=== PATIENT | female | born 1995 | race Caucasian/White ===

== ENCOUNTER 2018-01-27 14:24 | Emergency (ER) | payer OTHER, BC ==
[~2018-01-27] VITALS: Ht 167.6 cm; Wt 99.8 kg
[~2018-01-27 14:24] MED LIST: IBUPROFEN 200200 M1 PO; IBUPROFEN 800800 M1 PO; NORCO 5-325 TA1 EACH PO; NORFLEX100 MG PO
[2018-01-27] MEDS ORDERED: RIZATRIPTAN5 M1 PO (14:31)
[2018-01-27 14:54] LABS: ABSOLUTE BASOPHILS 0.1 thou/uL (0.0-0.2); ABSOLUTE EOSINOPHILS 0.1 thou/uL (0.0-0.7); ABSOLUTE LYMPHOCYTES 2.1 thou/uL (0.8-5.3); ABSOLUTE MONOCYTES 0.5 thou/uL (0.0-1.2); ABSOLUTE NEUTROPHILS 3.4 thou/uL (1.6-8.1); BASOPHILS 0.9 %; EOSINOPHILS 1.6 %; HEMATOCRIT 41.8 % (37.0-47.0); HEMOGLOBIN 14.1 gm/dL (12.0-15.0); LYMPHOCYTES 34.5 %; MCH 29.5 pg (26.0-34.0); MCHC 33.7 g/dL (28.0-37.0); MCV 87.7 fL (80.0-100.0); MPV 7.9 fl. (7.2-11.1); NUCLEATED RBCS 0 /100WBC; PLATELET COUNT* 304 thou/uL (150-400); RBC 4.77 mil/uL (4.20-5.00); RDW-CV 12.5 % (10.5-14.5); WBC 6.1 thou/uL (4.0-11.0)
[2018-01-27 14:56] LABS: CALCIUM 9.2 mg/dL (8.5-10.1); CREATININE 0.6 mg/dL (0.6-1.3); POTASSIUM 3.8 mmol/L (3.5-5.1)
[2018-01-27 15:01] LABS: ALBUMIN 3.6 g/dL (3.4-5.0); TOTAL BILIRUBIN 0.3 mg/dL (<0.1-1.0)
[2018-01-27 16:40] VITALS: BP 134/83
== END 2018-01-27 16:45 | disposition home or self-care (01) ==
LOC: M.ERS 14:24
PROVIDERS: Nurse Practitioner Family
DX: G43.909 Migraine, unspecified, not intractable, without status migrainosus (principal); I10 Essential (primary) hypertension; Z90.49 Acquired absence of other specified parts of digestive tract; Z98.890 Other specified postprocedural states

== ENCOUNTER 2018-11-25 19:23 | Emergency (ER) | payer OTHER, BC ==
[~2018-11-25] VITALS: Ht 167.6 cm; Wt 99.8 kg
[~2018-11-25 19:23] MED LIST changes: +RIZATRIPTAN5 M1 PO
[2018-11-25] MEDS ORDERED: PROZAC20 MG PO (19:35)
[2018-11-25] MEDS ORDERED: NUVARING VAGIN1 EACH VG (19:35)
[2018-11-25] MEDS ORDERED: BENADRYL25 MG PO (19:38)
[2018-11-25] MEDS ORDERED: COMPAZINE10 MG PO (19:38)
[2018-11-25 20:55] VITALS: BP 108/56
== END 2018-11-25 21:00 | disposition home or self-care (01) ==
LOC: M.ERS 19:23
DX: G43.909 Migraine, unspecified, not intractable, without status migrainosus (principal); Z98.890 Other specified postprocedural states; Z90.49 Acquired absence of other specified parts of digestive tract

== ENCOUNTER 2019-03-17 20:23 | Emergency (ER) | payer OTHER, BC ==
[~2019-03-17] VITALS: Ht 167.6 cm; Wt 113.4 kg
[~2019-03-17 20:23] MED LIST changes: +BENADRYL25 MG PO; +COMPAZINE10 MG PO; +NUVARING VAGIN1 EACH VG; +PROZAC20 MG PO
[2019-03-17] MEDS ORDERED: CYCLOBENZAPRINE5 MG PO (20:47)
[2019-03-17] MEDS ORDERED: PHENERGAN 25 MG25 M1 PO (20:47)
[2019-03-17 21:43] LABS: ABSOLUTE BASOPHILS 0.1 thou/uL (0.0-0.2); ABSOLUTE EOSINOPHILS 0.2 thou/uL (0.0-0.7); ABSOLUTE LYMPHOCYTES 2.4 thou/uL (0.8-5.3); ABSOLUTE MONOCYTES 0.8 thou/uL (0.0-1.2); ABSOLUTE NEUTROPHILS 6.1 thou/uL (1.6-8.1); BASOPHILS 0.6 %; EOSINOPHILS 1.9 %; HEMATOCRIT 36.2 % (37.0-47.0); HEMOGLOBIN 12.2 gm/dL (12.0-15.0); LYMPHOCYTES 24.9 %; MCH 29.7 pg (26.0-34.0); MCHC 33.7 g/dL (28.0-37.0); MCV 88.2 fL (80.0-100.0); MONOCYTES 8.7 %; MPV 7.6 fl. (7.2-11.1); NUCLEATED RBCS 0 /100WBC; PLATELET COUNT* 246 thou/uL (150-400); POLYS 63.9 %; RBC 4.11 mil/uL (4.20-5.00); RDW-CV 12.5 % (10.5-14.5); WBC 9.5 thou/uL (4.0-11.0)
[2019-03-17 21:48] LABS: URINE BILIRUBIN NEGATIVE (Negative); URINE BLOOD NEGATIVE (Negative); URINE CLARITY CLEAR; URINE COLOR YELLOW; URINE GLUCOSE-RANDOM NEGATIVE (Negative); URINE KETONES NEGATIVE (Negative); URINE LEUKOCYTES-REFLEX 1+ (Negative); URINE NITRITE-REFLEX NEGATIVE (Negative); URINE PROTEIN NEGATIVE (Negative); URINE SPECIFIC GRAVITY <= 1.005 (1.005-1.030); URINE UROBILINOGEN 0.2 E.U./dl (0.2-1.0)
[2019-03-17 21:54] LABS: CALCIUM 8.7 mg/dL (8.5-10.1); CREATININE 0.5 mg/dL (0.6-1.3); POTASSIUM 3.6 mmol/L (3.5-5.1)
[2019-03-17 21:59] LABS: ALBUMIN 3.1 g/dL (3.4-5.0); TOTAL BILIRUBIN 0.2 mg/dL (<0.1-1.0); TOTAL PROTEIN 6.7 g/dL (6.4-8.2)
[2019-03-17 22:11] LABS: CASTS None Seen /LPF (None Seen); CRYSTALS None Seen /LPF (None Seen); SQUAMOUS 0-3 Few /LPF (0-3); URINE RBC None Seen /HPF (0-2); URINE WBC-REFLEX 6-15 Few /HPF (0-5)
[2019-03-17] MEDS ORDERED: ONDANSETRON HCL4 M2 PO (23:11)
[2019-03-18 00:25] VITALS: BP 146/84
== END 2019-03-18 00:26 | disposition home or self-care (01) ==
LOC: M.ERS 20:23
PROVIDERS: Nurse Practitioner Family
DX: O26.892 Other specified pregnancy related conditions, second trimester (principal); R10.2 Pelvic and perineal pain; R11.0 Nausea; O13.2 Gestational [pregnancy-induced] hypertension without significant proteinuria, second trimester; O24.419 Gestational diabetes mellitus in pregnancy, unspecified control; O99.355 Diseases of the nervous system complicating the puerperium; G43.909 Migraine, unspecified, not intractable, without status migrainosus; Z98.890 Other specified postprocedural states; Z90.49 Acquired absence of other specified parts of digestive tract; Z3A.14 14 weeks gestation of pregnancy

== ENCOUNTER 2020-11-25 09:20 | Emergency (ER) | payer OTHER ==
[~2020-11-25] VITALS: Ht 167.6 cm; Wt 124.7 kg
[~2020-11-25 09:20] MED LIST changes: +CYCLOBENZAPRINE5 MG PO; +ONDANSETRON HCL4 M2 PO; +PHENERGAN 25 MG25 M1 PO
[2020-11-25] MEDS ORDERED: LEXAPRO20 MG PO (09:30)
[2020-11-25] MEDS ORDERED: WELLBUTRIN SR150 MG PO (09:30)
[2020-11-25 11:13] VITALS: BP 154/91
== END 2020-11-25 11:14 | disposition home or self-care (01) ==
LOC: M.ERS 09:20
DX: G43.909 Migraine, unspecified, not intractable, without status migrainosus (principal); R11.10 Vomiting, unspecified; Z98.890 Other specified postprocedural states; Z90.49 Acquired absence of other specified parts of digestive tract; Z98.51 Tubal ligation status